=== PATIENT | male | born 1980 | race Caucasian/White ===

== ENCOUNTER 2016-09-26 12:23 | Outpatient (CLI) | payer BC ==
[2016-09-26 13:13] LABS: eGFR (African) > 60; eGFR (Non-African) > 60
== END 2016-09-26 12:25 ==
LOC: LAB 12:23
PROVIDERS: ATTEND Family Medicine
DX: R20.0 Anesthesia of skin (principal)
CPT/HCPCS: 36415; 80053; 80061

== ENCOUNTER 2017-01-14 14:47 | Outpatient (CLI) | payer BC ==
[2017-01-14 15:05] LABS: BASOPHILS % 0.3 (0.0-1.5); EOSINOPHILS % 4.5 % (0.0-6.8); MEAN CORPUSCULAR HEMOGLOBIN 28.4 pg (28.0-34.0); MEAN CORPUSCULAR VOLUME 85.4 fl (80.0-100.0); MONOCYTES % 3.9 % (0.0-11.0); NEUTROPHILS # 4.3 # k/uL (1.4-7.7)
[2017-01-14 15:46] LABS: eGFR (African) > 60; eGFR (Non-African) > 60
== END 2017-01-14 14:50 ==
LOC: LAB 14:47
PROVIDERS: ATTEND Family Medicine
DX: R94.5 Abnormal results of liver function studies (principal); R00.2 Palpitations; K62.5 Hemorrhage of anus and rectum; E78.2 Mixed hyperlipidemia
CPT/HCPCS: 36415; 80053; 80061; 84443; 85025